=== PATIENT | female | born 1975 | race Caucasian/White ===

== ENCOUNTER 2017-02-26 15:32 | Emergency (ER) | payer OTHER ==
--- NOTE | ~2017-02-26 | CR142 ---
[facility]. [facility] A Service of [facility] & [facility] RADIOLOGY TEXT RESULTS PATIENT: JARROD LAMA LOCATION: SED : 77 UNIT #: [id number] AGE: [address]: Idalia Vásquez APRN SEX: F ORDER DR: [id number] [place] [id number] E MR#: [id number] Acc #: [id number] NAME: JARROD LAMA : 1975 SEX: F STUDY DATE/TIME: 02/26/2017 15:48 UNIT: SED ROOM: STUDY DESCRIPTION: CR Hand Min 3 Views Rt Attending Physician: Idalia Vásquez A.P.R.N. Referring Physician: Idalia Vásquez A.P.R.N. Ordering Physician: Idaila Vásquez A.P.R.N. Primary Care Physician: Denise Lemons A.P.R.N. MEDICAL IMAGING REPORT This report is preliminary unless electronic signature is present. EXAM Right hand series 02/26/2017 HISTORY Laceration, possible foreign body. Laceration today. Hand through glass. FINDINGS AP lateral and oblique radiographs of the right hand are presented. Comparison 06/18/2010. Current study is degraded by digital overlap inflection on the oblique and lateral views. A radiopaque marker was directed toward the area of soft tissue abnormality at the radial aspect of the thumb at about the middle third of the first metacarpal bone. Cutaneous irregularity is visualized consistent with history of laceration. No subcutaneous radiodense foreign body is seen. Please note that not all forms of glass are radiodense. There is overlying bandaging material. I do not see clear indication of laceration extending to underlying bone surface. No other acute soft tissue abnormalities are seen. No traumatic fracture or malalignment suggested. Dictated by... Jose A Rain M.D. THIS IS AN ELECTRONICALLY VERIFIED REPORT Jose A Rain M.D. at 02/27/2017 1:54 PM SUYAPA/marine TD: 02/26/2017 21:59 JOB #: [id number] [facility]. [facility] A Service of [facility] & [facility] RADIOLOGY TEXT RESULTS PATIENT: JARROD LAMA LOCATION: SED : [birth year] UNIT #: [id number] AGE: [address]: Idalia Vásquez APRN SEX: F ORDER DR: MEDICAL IMAGING REPORT Page 1 of 1
[~2017-02-26 15:32] MED LIST: ACETAMINOPHEN PO; BACTRIM DS TABL1 TA1 PO; BACTRIM DS TABL1 TA2 PO; BACTRIM DS TABL1 TAB PO; FLEXERIL PO; FLEXERIL10 MG PO; IBUPROFEN800 MG PO; KENALOG IN ORABA5 GM TOP; KETOPROFEN PO; LORTAB 5/500 TA1 TA1 PO; NO MEDICATIONS; PHENERGAN25 M1 PO; PRILOSEC20 MG PO; ULTRAM PO; VICODIN 5/1 TAB 5/50 PO; VICODIN 5/500 T1 TAB PO; VISTARIL PO; ZITHROMAX PO
== END 2017-02-26 17:15 | disposition home or self-care (01) ==
LOC: SED 15:32
DX: S61.411A Laceration without foreign body of right hand, initial encounter (principal); F17.200 Nicotine dependence, unspecified, uncomplicated; Z88.0 Allergy status to penicillin; W25.XXXA Contact with sharp glass, initial encounter; Y92.009 Unspecified place in unspecified non-institutional (private) residence as the place of occurrence of the external cause
CPT/HCPCS: 12001; 73130; 99283

== ENCOUNTER 2017-06-12 09:34 | Emergency (ER) | payer OTHER ==
[~2017-06-12] VITALS: Ht 157.5 cm; Wt 62.1 kg
--- NOTE | ~2017-06-12 | CR282 ---
[facility]. [facility] A Service of [facility] & [facility] RADIOLOGY TEXT RESULTS PATIENT: JARROD LAMA LOCATION: SED : [birth year] UNIT #: [id number] AGE: [address]: OMARI OLEARY SEX: F ORDER DR: [id number] [address] [address] [id number] E MR#: [id number] Acc #: [id number] NAME: JARROD LAMA. : 1975 SEX: F STUDY DATE/TIME: 06/12/2017 11:48 UNIT: SED ROOM: STUDY DESCRIPTION: CR Wrist Min 3 View Rt Attending Physician: Omari Oleary Ordering Physician: Omari Oleary Primary Care Physician: Denise Lemons A.P.R.N. MEDICAL IMAGING REPORT This report is preliminary unless electronic signature is present. EXAM Right wrist 3 views INDICATIONS Right lateral wrist pain and redness today after falling. No comparisons. FINDINGS Carpal alignment maintained. No evidence for fracture. No radiopaque foreign body. IMPRESSION Negative Dictated by... Abdoul Guerrero M.D. THIS IS AN ELECTRONICALLY VERIFIED REPORT Abdoul Guerrero M.D. at 06/13/2017 12:09 PM CRYSTAL/dave TD: 06/12/2017 15:17 JOB #: [id number] MEDICAL IMAGING REPORT Page 1 of 1
[2017-06-12 12:28] LABS: URINE SOURCE CLEAN CATCH
[2017-06-12 12:31] LABS: URINE APPEARANCE HAZY; URINE BILIRUBIN NEG (NEG); URINE BLOOD TRACE-INTACT (NEG); URINE COLOR YELLOW; URINE GLUCOSE NEG (NORM); URINE KETONE NEG (NEG); URINE LEUKOCYTE ESTERASE NEG (NEG); URINE NITRATE POS (NEG); URINE PH 5.5 (5-8); URINE PROTEIN NEG (NEG); URINE SPECIFIC GRAVITY 1.025 (1.003-1.035); URINE UROBILINOGEN 0.2 MG/DL (NORM)
[2017-06-12 12:33] LABS: MICRO INDICATED? YES
[2017-06-12 12:34] LABS: CULTURE INDICATED? YES; URINE BACTERIA 3+ (NEG); URINE SQUAMOUS EPITHELIAL CELL MODERATE /[HPF]; URINE TRANSITIONAL EPI CELLS OCCAS /[HPF]
[2017-06-12 12:35] LABS: URINE MUCUS PRESENT
[2017-06-12 13:16] LABS: BASOPHIL# 0.1 X10e3 (0-0.3); BASOPHIL% 1.1 % (0-2.5); DIFF IND NO; EOSINOPHIL# 0.3 X10e3 (0-0.7); EOSINOPHIL% 5.4 % (0.0-7.0); HEMATOCRIT 28.7 % (35.0-45.0); HEMOGLOBIN 9.2 gm/dL (12.0-16.0); LYMPHOCYTE% 20.3 % (17.0-45.0); MEAN CELL VOLUME 69.9 FL (83-96); MEAN CORPUSCULAR HEMOGLOBIN 22.4 PG (28-34); MEAN PLATELET VOLUME 7.1 FL (6.5-11.5); MONOCYTE# 0.4 X10e3 (0-1.0); MONOCYTE% 8.1 % (3.0-12.0); NEUTROPHIL# 3.3 X10e3 (1.5-7.1); NEUTROPHIL% 65.1 % (40-75); PLATELET COUNT 323 X10e3 (140-420); RED CELL DISTRIBUTION WIDTH 18.5 % (11.0-15.5); WHITE BLOOD COUNT 5.1 X10e3 (4.0-10.5)
[2017-06-12 13:19] LABS: AMPHETAMINE POS (NEG); BARBITURATES NEG (NEG); BENZODIAZEPINES NEG (NEG); COCAINE NEG (NEG); MARIJUANA NEG (NEG); OPIATES NEG (NEG); TRICYCLIC ANTIDEPRESSANTS NEG (NEG); U METHADONE NEG (NEG)
[2017-06-12 13:32] LABS: ALBUMIN SERUM 3.2 g/dL (3.5-5.0); BILIRUBIN,TOTAL 0.2 mg/dL (0.2-2.0); CREATININE SERUM 0.5 mg/dL (0.6-1.4); GLOM FILT RATE Estimated 121.1 mL/min (>60); POTASSIUM 3.9 mmol/L (3.5-5.1)
== END 2017-06-12 14:24 | disposition home or self-care (01) ==
LOC: SED 09:34
PROVIDERS: Physician Assistant
DX: N39.0 Urinary tract infection, site not specified (principal); R60.0 Localized edema; F15.10 Other stimulant abuse, uncomplicated; F17.210 Nicotine dependence, cigarettes, uncomplicated; Z88.0 Allergy status to penicillin; Z98.890 Other specified postprocedural states
CPT/HCPCS: 36415; 73110; 80053; 80307; 81003; 84443; 84703; 85025; 87086; 87088; 87186; 99284